=== PATIENT | male | born 1980 | race Caucasian/White ===

== ENCOUNTER 2017-05-06 13:59 | Emergency (ER) | payer BC ==
[~2017-05-06] VITALS: Ht 185.4 cm; Wt 172.4 kg
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
[2017-05-06 15:07] VITALS: BP 149/76
== END 2017-05-06 14:45 | disposition home or self-care (01) ==
LOC: ER 13:59
DX: T24.212A Burn of second degree of left thigh, initial encounter (principal); X08.8XXA Exposure to other specified smoke, fire and flames, initial encounter; Y93.89 Activity, other specified; Y92.89 Other specified places as the place of occurrence of the external cause; Y99.8 Other external cause status
CPT/HCPCS: A4663

== ENCOUNTER 2018-10-23 20:38 | Emergency (ER) | payer SELFPAY ==
[~2018-10-23] VITALS: Ht 185.4 cm; Wt 122.5 kg
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
[2018-10-23] MEDS ORDERED: IBUPROFEN 800 MG TABLET PO ONE (22:45)
[2018-10-23 23:22] LABS: *BILIRUBIN,URIN NEGATIVE (NEGATIVE); *BLOOD, URINE 2+ (NEGATIVE); *CLARITY,URINE CLEAR (CLEAR); *COLOR,URINE YELLOW (YELLOW); *KETONES,URINE NEGATIVE (NEGATIVE); *UROBILINOGEN,URINE 0.2 E.U./dl (NORMAL); LEUKOCYTE ESTERASE ,URINE NEGATIVE (NEGATIVE); NITRITE, URINE NEGATIVE (NEGATIVE); PH,URINE 5.5 (5.0-8.0); UGLUCOSE NEGATIVE (NEGATIVE)
[2018-10-23] MEDS ORDERED: IBUPROFEN 800 MG TABLET ONE (23:26)
[2018-10-23 23:30] LABS: BACTERIA,URINE NONE SEEN /HPF (NONE SEEN); WBC,URINE NONE SEEN /HPF (0-3)
--- NOTE | 2018-10-24 01:04 | NUR ---
Patient discharged to home in stable conditon. Written and verbal after care instructions given. Patient verbalizes understanding of instructions.
[2018-10-24 01:06] VITALS: BP 140/78
== END 2018-10-24 01:05 | disposition home or self-care (01) ==
LOC: ER 20:42
DX: S16.1XXA Strain of muscle, fascia and tendon at neck level, initial encounter (principal); S29.9XXA Unspecified injury of thorax, initial encounter; F17.200 Nicotine dependence, unspecified, uncomplicated; V43.52XA Car driver injured in collision with other type car in traffic accident, initial encounter; Y93.89 Activity, other specified; Y92.410 Unspecified street and highway as the place of occurrence of the external cause; Y99.8 Other external cause status
CPT/HCPCS: 71250; 72125; A4663

== ENCOUNTER 2023-09-05 11:51 | Emergency (ER) | payer OTHER ==
[~2023-09-05] VITALS: Ht 185.4 cm; Wt 122.9 kg
[2023-09-05] MEDS ORDERED: CEPH750C9 PO (12:39)
[2023-09-05] MEDS ORDERED: TRAM50TA2 PO (12:39)
[2023-09-05] MEDS ORDERED: ONDA4TAB5 PO (12:39)
[2023-09-05 13:05] VITALS: BP 138/68; TEMP 98; O2SAT 96
== END 2023-09-05 12:45 | disposition home or self-care (01) ==
LOC: ER 11:52
DX: A63.0 Anogenital (venereal) warts (principal); Z79.899 Other long term (current) drug therapy
CPT/HCPCS: A4606; A4663